=== PATIENT | female | born 1980 ===

== ENCOUNTER 2019-10-24 08:44 | Outpatient (CLI) | payer OTHER ==
[~2019-10-24 08:44] MED LIST: METO200T47 PO; ZOLP-413 PO
[2019-10-24] MEDS ORDERED: LIDOCAINE-MPF 1%, 5ML ONE (09:01)
[2019-10-24 10:44] LABS: CELLS COUNTED 9
== END 2019-10-24 23:59 | disposition home or self-care (01) ==
LOC: RAD 08:44
PROVIDERS: ATTEND Orthopaedic Surgery
DX: M25.472 Effusion, left ankle (principal); M25.572 Pain in left ankle and joints of left foot; Z88.5 Allergy status to narcotic agent; Z79.899 Other long term (current) drug therapy
CPT/HCPCS: 20605; 77002; 87070; 87205; 89051; 89060

== ENCOUNTER 2019-11-17 05:48 | Day surgery (SDC) | payer OTHER ==
[~2019-11-17] VITALS: Ht 172.7 cm; Wt 115.0 kg
[2019-11-17] MEDS ORDERED: LACTATED RINGERS 1,000 ML IV SCH (06:07)
[2019-11-17] MEDS ORDERED: LIDOCAINE-MPF 1%, 5ML ONE (06:12)
[2019-11-17] MEDS ORDERED: BUPIVACAINE/PF-EPI 0.5% 1:200K ONE (06:12)
[2019-11-17] MEDS ORDERED: CHLORHEXIDINE 15 ML UDC ONE (06:12)
[2019-11-17] MEDS ORDERED: BUPIVACAINE/PF 0.5% ONE ×2 (06:15→09:08)
[2019-11-17] MEDS ORDERED: CHLORHEXIDINE 15 ML UDC MM ONE (06:30)
[2019-11-17 06:37] VITALS: BP 115/77
[2019-11-17] MEDS ORDERED: MIDAZOLAM 1 MG/ML, 2ML ONE (06:46)
[2019-11-17] MEDS ORDERED: SUGAMMADEX 200 MG/2 ML IVPush ONE (06:57)
[2019-11-17] MEDS ORDERED: SCOPOLAMINE 1MG PATCH TD SCH (07:00)
[2019-11-17] MEDS ORDERED: GABAPENTIN 300 MG CAPSULE PO ONE (07:00)
[2019-11-17] MEDS ORDERED: ACETAMINOPHEN 500 MG TABLET PO ONE (07:00)
[2019-11-17] MEDS ORDERED: VANCOMYCIN 1,000 MG ONE (07:12)
[2019-11-17] MEDS ORDERED: ONDANSETRON 2MG/ML, 2ML IVPush PRN (07:30)
[2019-11-17] MEDS ORDERED: DIPHENHYDRAMINE 50 MG/ML, 1ML IVPush PRN (07:30)
[2019-11-17] MEDS ORDERED: hydrALAzine 20 MG/ML, 1ML IV PRN (07:30)
[2019-11-17] MEDS ORDERED: PROMETHAZINE 12.5 MG SUPP PR PRN (07:30)
[2019-11-17] MEDS ORDERED: MIDAZOLAM 1 MG/ML, 2ML IV PRN (07:30)
[2019-11-17] MEDS ORDERED: MEPERIDINE/PF 25MG/0.5ML IVPush PRN (07:30)
[2019-11-17] MEDS ORDERED: LABETALOL 5MG/ML, 20ML IV PRN (07:30)
[2019-11-17] MEDS ORDERED: DIAZEPAM 5 MG/ML, 2ML IVPush PRN (07:30)
[2019-11-17] MEDS ORDERED: HYDROmorphone 1 MG/ML, 1ML INJ IVPush PRN (07:30)
[2019-11-17] MEDS ORDERED: OXYcodone 5 MG/5 ML ORAL.SOL UDC PO PRN (07:30)
[2019-11-17] MEDS ORDERED: EPHEDRINE 50 MG/ML, 1ML IVPush PRN (07:30)
[2019-11-17] MEDS ORDERED: ALBUTEROL SULFATE 2.5 MG/3 ML NPPB PRN (07:30)
[2019-11-17] MEDS ORDERED: PROMETHAZINE 25 MG/ML, 1ML IVPush PRN (07:30)
[2019-11-17] MEDS ORDERED: CEFAZOLIN 1,000 MG ONE ×3 (07:48)
[2019-11-17] MEDS ORDERED: FENTANYL PF 250 MCG/5ML ONE (07:48)
[2019-11-17] MEDS ORDERED: ROCURONIUM 10MG/ML,5ML ONE (07:48)
[2019-11-17] MEDS ORDERED: PROPOFOL 10 MG/ML, 20ML ONE ×2 (07:48→10:07)
[2019-11-17] MEDS ORDERED: SUCCINYLCHOLINE 20 MG/ML, 10ML ONE ×2 (07:49→10:07)
[2019-11-17] MEDS ORDERED: FENTANYL PF 100 MCG/2ML ONE ×2 (08:25→08:58)
[2019-11-17] MEDS: FENTANYL PF 100 MCG/2ML IV PRN ×4 (08:27→08:58)
[2019-11-17] MEDS ORDERED: OXYcodone 5 MG/5 ML ORAL.SOL UDC ONE (08:36)
[2019-11-17] MEDS ORDERED: EPHEDRINE 50 MG/ML, 1ML ONE (10:07)
[2019-11-17] MEDS ORDERED: ONDANSETRON 2MG/ML, 2ML ONE (10:07)
[2019-11-17] MEDS ORDERED: LIDOCAINE-MPF 2% ,5ML ONE (10:07)
[2019-11-17] MEDS ORDERED: KETOROLAC 30 MG/1 ML ONE (10:07)
[2019-11-17] MEDS ORDERED: DEXAMETHASONE 4 MG/ML, 1ML ONE (10:07)
== END 2019-11-17 11:15 | disposition home or self-care (01) ==
LOC: OUT 05:48
PROVIDERS: ATTEND Orthopaedic Surgery
DX: T81.42XA Infection following a procedure, deep incisional surgical site, initial encounter (principal); Z11.59 Encounter for screening for other viral diseases; E66.9 Obesity, unspecified; Z79.899 Other long term (current) drug therapy; Z88.5 Allergy status to narcotic agent; Z88.8 Allergy status to other drugs, medicaments and biological substances; Y83.8 Other surgical procedures as the cause of abnormal reaction of the patient, or of later complication, without mention of misadventure at the time of the procedure
CPT/HCPCS: 27620; 36415; 64445; 87070; 87075; 87102; 87205; 87635; J0330; J0690; J1100; J1885; J2250; J2405; J2704; J3010; J3370; J7120